=== PATIENT | female | born 1950 | race Caucasian/White ===

== ENCOUNTER 2019-07-13 12:48 | Emergency (ER) | payer MEDICARE, OTHER, SELFPAY ==
[2019-07-13 13:12] VITALS: BP 157/78; PULSE 78; RESP 16; TEMP 36.6; O2SAT 99
--- NOTE | 2019-07-13 13:24 | ED.FEMALEGU ---
HPI - Female Genitourinary General Chief complaint: Urogenital-Female Stated complaint: possibe UTI Time Seen by Provider: 07/13/19 13:24 Source: patient and RN notes reviewed Mode of arrival: ambulatory Limitations: no limitations History of Present Illness HPI Narrative: 60-year-old female presents with concern for possible urinary tract infection. Reports since this morning she had frequency, burning, feeling of not being able to empty her bladder. She denies abdominal pain, nausea, back pain, fever, malaise. Denies hematuria. MD elicited complaint: UTI Related Data Home Medications Medication Instructions Recorded Confirmed albuterol sulfate [Proair 180 mcg INHALATION QID PRN 07/13/19 07/13/19 Digihaler] diltiazem HCl 60 mg PO BID 07/13/19 07/13/19 fluticasone propion-salmeterol 1 inh INHALATION Q12H 07/13/19 07/13/19 [Advair Diskus] fluticasone propionate [Flonase 1 spray INTRANASAL BID 07/13/19 07/13/19 Allergy Relief] furosemide [Lasix] 20 mg PO DAILY 07/13/19 07/13/19 montelukast [Singulair] 10 mg PO DAILY 07/13/19 07/13/19 rivaroxaban [Xarelto] 20 mg PO DAILY 07/13/19 07/13/19 thyroid (pork) [[place] Thyroid] 60 mg PO DAILY 07/13/19 07/13/19 tiotropium bromide [Spiriva 2 puff INHALATION DAILY 07/13/19 07/13/19 Respimat] Allergies Allergy/AdvReac Type Severity Reaction Status Date / Time Penicillins Allergy Unknown Verified 07/13/19 13:17 Review of Systems Review of Systems: Narrative: CONSTITUTIONAL: Denies malaise, chills, sweats, or fever. CARDIOVASCULAR: Denies chest pain, palpitations RESPIRATORY: Denies cough or dyspnea. GASTROINTESTINAL: Denies abdominal pain, nausea, vomiting, diarrhea, bloody, or mucous stools. GENITOURINARY: Reports dysuria, frequency, urgency. Denies flank pain or hematuria. SKIN: Denies rash or itching. MUSCULOSKELETAL: Denies back pain, joint pain, or myalgia. All systems reviewed & are unremarkable except as noted in HPI and below PMFSH Comments At time of signature, agree with nursing past medical, surgical, social and family history. There is no relevant family history pertinent to the presenting complaint Exam Narrative: Exam Narrative: GENERAL: Well-appearing, well-nourished, and in no acute distress. HEAD: Normocephalic. EYES: PERRLA, conjunctivae clear. NECK: Supple. No lymphadenopathy CHEST: Clear to auscultation. No respiratory distress. HEART: Regular rate and rhythm. No murmur heard. Normal peripheral pulses. ABDOMEN: Soft, nontender upon palpation, nondistended, normal active bowel sounds, no palpable or pulsatile masses, no guarding. No CVA tenderness SKIN: Warm, dry, no rash. NEURO: Alert and oriented x3. PSYCH: Normal mood and affect Course Course Emergency Course: Patient is aware of diagnosis, understands and agrees to treatment plan. Anticipatory guidance given. Patient agrees to follow-up as directed and is aware of reasons to seek care at the emergency department. Portions of this record may have been created with voice recognition software Vital Signs Vital signs: Vital Signs Temperature 97.8 F 07/13/19 13:12 Pulse Rate 78 07/13/19 13:12 Respiratory Rate 16 07/13/19 13:12 Blood Pressure 157/78 H 07/13/19 13:12 Pulse Oximetry 99 07/13/19 13:12 Temperature 97.8 F 07/13/19 13:12 Pulse Rate 78 07/13/19 13:12 Respiratory Rate 16 07/13/19 13:12 Blood Pressure 157/78 H 07/13/19 13:12 Pulse Oximetry 99 07/13/19 13:12 Reviewed. Patient has been instructed to follow up with her primary care provider within the next week regarding her elevated blood pressure today. MDM - Female Genitourinary MDM Narrative Medical decision making narrative: Exam findings and UA show no acute concerns or changes; patient is non-toxic appearing and is in no distress. Patient is appropriate for outpatient treatment and follow-up. Differential Diagnosis Differential diagnosis: Likely urinary tract infection, vaginitis and cyst
== END 2019-07-13 13:35 | disposition home or self-care (01) ==
PROVIDERS: Emergency Provider Nurse Practitioner
DX: R35.0 Frequency of micturition (principal); I10 Essential (primary) hypertension; I48.91 Unspecified atrial fibrillation; E03.9 Hypothyroidism, unspecified
CPT/HCPCS: 81003; 87086; 87088; 99213; G0463